=== PATIENT | male | born 1965 | race Caucasian/White ===

== ENCOUNTER 2019-05-14 15:42 | Emergency (ER) | payer SELFPAY ==
[~2019-05-14] VITALS: Ht 172.7 cm; Wt 90.0 kg
[2019-05-14 17:47] VITALS: BP 174/98
== END 2019-05-14 20:20 | disposition left against medical advice (07) ==
LOC: ER 15:42
DX: R06.81 Apnea, not elsewhere classified (principal); Z53.21 Procedure and treatment not carried out due to patient leaving prior to being seen by health care provider